=== PATIENT | female | born 1945 | race Caucasian/White ===

== ENCOUNTER → 2018-01-30 17:56 | Outpatient (CLI) | payer MEDICARE, SELFPAY ==
--- NOTE | 2018-01-30 18:02 | DI.MRI.S_ITS ---
PROCEDURE: MR KNEE RT WO CON INDICATIONS: RIGHT OSTEOARTHRITIS TECHNIQUE: Noncontrast sagittal PD fast spin echo and T2 fast spin echo with fat saturation, sagittal 3-D FLASH with fat saturation; coronal T1 spin echo and PD fast spin echo with fat saturation, and axial PD fast spin echo with fat saturation through the knee. COMPARISON: [facility] Outside Film, CR, XR KNEE ARTHRITIC SERIES BI, 12/06/2017, 12:34. FINDINGS: Image quality: Excellent. Menisci: Amorphous high signal intensity within the posterior horn medial meniscus is present which demonstrates vague inferior articular surface extension. There is lateral extrusion of the lateral meniscus which demonstrates fragmentation, as well as amorphous high signal intensity within the anterior and posterior horns demonstrating inferior articular surface extension and superior articular surface extension. Cruciate ligaments: The anterior and posterior cruciate ligaments appear intact. Medial structures: The medial collateral ligament appears intact but demonstrates a small amount of surrounding fluid. The posterior oblique ligament, semimembranosus tendon insertions, oblique popliteal ligament, and meniscocapsular junction appear intact. Visualized portions of the pes anserinus tendons appear normal. Small amount of medial bursal fluid. Lateral structures: The lateral collateral ligament demonstrates mild T2 signal elevation within its femoral insertion site. The long and short heads of the biceps femoris tendon appear intact. The popliteus tendon appears normal; the popliteofibular ligament appears intact. The posterosuperior and anteroinferior popliteomeniscal fascicles appear intact. The arcuate and fabellofibular ligaments appear intact, on either side of the lateral inferior geniculate artery. Iliotibial band appears normal. Anterior structures: The quadriceps and patellar tendons appear intact. Patellar alignment is normal. No femoral trochlear dysplasia or ventral trochlear prominence. No edema in the infrapatellar fat pad. Bones and cartilage: No bone marrow contusions or fractures. Mild tricompartmental periarticular osteophyte formation. Moderate ill-defined T2 signal elevation within the lateral femoral condyle lateral tibial plateau is present, consistent with degenerative sequelae. Severe diffuse articular cartilage loss overlies the weightbearing aspects of the lateral femoral condyle and lateral tibial plateau. Mild diffuse articular cartilage loss overlies the weightbearing aspects of the medial femoral condyle and medial tibial plateau. Mild diffuse articular cartilage loss overlies the medial and lateral patellar facets, as well as the patellar apex. Joint space: There is a moderate knee joint effusion and a small ganglion cyst along the popliteus. Small intra-articular loose bodies are present posteriorly, largest of which measures roughly 4 mm within the posterior aspect of the medial compartment. No Duran's cyst. Normal appearing synovial plicae are incidentally noted. IMPRESSION: 1. Medial and lateral meniscal tearing as described above. 2. Tricompartmental osteoarthritis with associated articular cartilage loss and degenerative marrow edema adjacent to the lateral compartment. 3. Low-grade partial-thickness tearing of the lateral collateral ligament. 4. MCL strain. 5. Knee joint effusion and ganglion cyst along the popliteus. Small intra-articular loose bodies. 6. Medial bursitis. Dictated by: Roman Portillo M.D. on 01/31/2018 at 10:18 Approved by: Roman Portillo M.D. on 01/31/2018 at 10:23
== END ==
PROVIDERS: Visit Provider Orthopaedic Surgery
DX: M17.11 Unilateral primary osteoarthritis, right knee (principal); S83.241A Other tear of medial meniscus, current injury, right knee, initial encounter; M67.461 Ganglion, right knee; M23.41 Loose body in knee, right knee
CPT/HCPCS: 73721